=== PATIENT | male | born 1960 ===

== ENCOUNTER 2022-07-29 07:10 | Day surgery (SDC) | payer MEDICAID ==
[~2022-07-29] VITALS: Ht 170.2 cm; Wt 65.8 kg
[2022-07-29] MEDS ORDERED: ALBUTERO2 IN (07:50)
[2022-07-29] MEDS ORDERED: CVS IBUPROFEN200 M3 PO (07:51)
[2022-07-29] MEDS ORDERED: [UNRECOGNIZED DRUG - OTHER] IN (07:52)
[2022-07-29] MEDS ORDERED: PROTONIX40 M2 PO (08:03)
[2022-07-29] MEDS ORDERED: VENTOLIN HFA108 MCG IN (08:03)
[2022-07-29] MEDS ORDERED: SYMBICORT1 AE1 IN (08:04)
[2022-07-29 10:04] VITALS: BP 152/94
== END 2022-07-29 09:40 | disposition home or self-care (01) ==
LOC: ORM 07:10
PROVIDERS: ATTEND Physical Medicine & Rehabilitation Pain Medicine
DX: M54.16 Radiculopathy, lumbar region (principal); G89.4 Chronic pain syndrome; Z01.818 Encounter for other preprocedural examination; Z11.59 Encounter for screening for other viral diseases
CPT/HCPCS: J1100; J3490; Q9967